=== PATIENT | female | born 1985 | race African-American/Black ===

== ENCOUNTER 2018-05-22 07:49 | Day surgery (SDC) | payer MEDICAID, OTHER ==
[2018-05-22] MEDS ORDERED: ENOXAPARIN SODIUM 40 MG/0.4 ML DISP.SYRIN SQ ONE (08:48)
[2018-05-22] MEDS ORDERED: PROPOFOL 200 MG/20 ML VIAL IV ONE (08:48)
[2018-05-22] MEDS ORDERED: ROCURONIUM BROMIDE 10 MG/ML 5ML VIAL ONE (08:48)
[2018-05-22] MEDS ORDERED: SCOPOLAMINE HYDROBROMIDE 1.5MG/72HR PATCH TD ONE (08:48)
[2018-05-22] MEDS ORDERED: MEPERIDINE (NF) 50 MG/ML VIAL ONE ×2 (08:48→11:42)
[2018-05-22] MEDS ORDERED: LIDOCAINE HCL 2% PF 100MG/5ML VIAL IJ ONE (08:48)
[2018-05-22] MEDS ORDERED: fentaNYL CITRATE/PF 100 MCG/2 ML INJ. ONE ×2 (08:48→11:45)
[2018-05-22] MEDS ORDERED: LIDOCAINE HCL 1% PF 300MG/30ML VIAL ONE (08:48)
[2018-05-22] MEDS ORDERED: MIDAZOLAM HCL 2 MG/2 ML VIAL ONE (08:48)
[2018-05-22] MEDS ORDERED: SODIUM CHLORIDE IRRIG SOLUTION 3,000 ML IRRIG.SOLN IR ONE (08:48)
[2018-05-22] MEDS ORDERED: DEXAMETHASONE SOD PHOS 4 MG/ML VIAL ONE (08:48)
[2018-05-22] MEDS ORDERED: FENTANYL CITRATE/PF 250 MCG/5 ML INJ. ONE (08:48)
[2018-05-22] MEDS ORDERED: SEVOFLURANE 250 ML LIQUID IH ONE (08:48)
[2018-05-22] MEDS ORDERED: ceFAZolin SODIUM 1 GM VIAL ONE (08:48)
[2018-05-22] MEDS ORDERED: KETOROLAC TROMETHAMINE 30 MG/1ML VIAL ONE (08:48)
[2018-05-22] MEDS ORDERED: ONDANSETRON HCL/PF 4 MG/ 2ML VIAL ONE (08:48)
[2018-05-22] MEDS ORDERED: BUPIV. HCL 0.25% (2.5MG/ML)/EPI. (1:200,000) PF 30 ML VIAL IJ ONE (08:48)
[2018-05-22] MEDS ORDERED: LACTATED RINGERS 1,000 ML IV.SOLN IV ONE ×2 (08:48)
[2018-05-22] MEDS ORDERED: HYDROmorphone HCL/PF 2 MG/ML VIAL ONE ×2 (08:48→12:06)
[2018-05-22] MEDS ORDERED: LEVALBUTEROL HCL 1.25 MG/3 ML AMPUL.NEB NEB ONE ×2 (08:48)
[2018-05-22] MEDS ORDERED: SUGAMMADEX SODIUM 200 MG/2 ML VIAL IV ONE (08:48)
[2018-05-22] MEDS ORDERED: FAMOTIDINE 20 MG/2 ML VIAL ONE (08:48)
[2018-05-22] MEDS ORDERED: LEVALBUTEROL HCL 1.25 MG/3 ML VIAL.NEB IH ONE (09:15)
== END 2018-05-22 12:40 | disposition other institution (70) ==
LOC: OPSURG 07:49
PROVIDERS: ATTEND Surgery
DX: E66.01 Morbid (severe) obesity due to excess calories (principal); Z68.41 Body mass index [BMI] 40.0-44.9, adult; K21.9 Gastro-esophageal reflux disease without esophagitis
CPT/HCPCS: 43235; 43775; 93005; A9270; J0690; J1100; J1170; J1650; J1885; J2001; J2175; J2250; J2405; J2704; J3010; J7120; J7614; S0028

== ENCOUNTER 2018-05-22 11:12 | Inpatient (IN) | payer MEDICAID, OTHER ==
--- NOTE | 2018-05-22 13:30 | History and Physical Report ---
History of Present Illnes - History of Present Illness Reason for Visit: S/P Gastric Sleeve History of Present Illness: Patient is a 32-year-old female who has tried multiple diets and exercise programs with no success. She really have difficulty losing weight after pregnancies. Patient and surgeon decided to proceed with gastric sleeve procedure. Procedure went well without complications- patient will be admitted and monitored s/p surgical intervention. 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) Endocrine: obesity Grav: 5 Para: 2 Ab: 3 - Past Surgical History Past Surgical History: Other (vaginal cyst), Other (Right ear keloid) - Past Family History Mother Family History: Other (asthma) Father Family History: Hypertension - Past Social History Smoke: 1 pack per day Alcohol: Rare Drugs: Marijuana Lives: With Family Domestic Violence: Negative - Health Maintenance Health Maintenance: Tetanus, Influenza Vaccine Influenza Vaccine: Current for this Influenza Season Pneumonia Vaccine: No Resuscitation Status: Resusciation Status Resuscitation Status Full Code - Unable to Obtain History Unable to Obtain: No Review of Systems - Review of Systems Constitutional: negative: Fever, Chills Eyes: negative: pain, vision change ENT: negative: Ear Pain, Nose Pain, Throat Pain Respiratory: negative: Cough, Shortness of Breath, SOB with Excertion Cardiovascular: negative: Chest Pain, Edema, Light Headedness Gastrointestinal: Abdominal Pain (s/p gastric sleeve). negative: Nausea, Vomiting Genitourinary: negative: Dysuria (pt has already voided) Musculoskeletal: negative: Back Pain Skin: negative: Rash Neurological: negative: Confusion - Medications/Allergies Allergies/Adverse Reactions: Allergies Allergy/AdvReac Type Severity Reaction Status Date / Time latex Allergy Unknown Verified 05/22/18 13:42 Home Medications: Home Medications Biotin 10,000 mcg PO DAILY 05/22/18 Cyanocobalamin (Vitamin B-12) [Vitamin B-12] 1,000 mcg PO DAILY 05/22/18 Ibuprofen 800 mg PO DAILY 05/22/18 Multivitamin [Tab-A-Aleksander] 1 each PO DAILY 05/22/18 Current Inpatient Medications: Current Inpatient Medications Cefazolin Sodium/Dextrose (Cefazolin 1 G/50 Ml-Dextrose) 1 gm IV Q8H RITO Stop: 05/23/18 02:31 Enoxaparin Sodium (Lovenox) 40 mg SQ QD RITO Stop: 06/06/18 13:59 Famotidine (Pepcid) 20 mg IVP BID [facility] Stop: 05/26/18 20:59 Promethazine HCl 25 mg/ Sodium (Chloride) 51 mls @ 600 mls/hr IV Q6 PRN PRN Reason: Nausea / Vomiting Stop: 05/26/18 13:18 Sodium Chloride (Normal Saline) 1,000 mls @ 150 mls/hr IV Q8H [facility] Ketorolac Tromethamine (Toradol) 30 mg IVP Q6 PRN PRN Reason: For Mild Pain Stop: 05/26/18 13:18 Ondansetron HCl (Zofran 4 Mg/2 Ml) 4 mg IVP Q6H PRN PRN Reason: Nausea / Vomiting Stop: 05/26/18 13:18 Oxycodone HCl (Oxycodone Soln) 5 mg PO Q6 PRN PRN Reason: Pain 5-7 Exam - Exam General: Alert, Oriented to Person, Oriented to Place, Oriented to Time, Cooperative, Mild distress, Obese HEENT: Atraumatic, PERRLA, Mouth Mucous membr. moist/[place], Nose Mucous membr. moist/[place] Neck: Normal Range of Motion Carotids: No bruit Lungs: Clear to auscultation, Normal air movement, Speaks full Sentences Cardiovascular: Regular rate, Normal S1, Normal S2 Peripheral Edema: None Peripheral Pulses: 2+ Abdomen: Soft, Decreased Bowel Sounds Integumentary: Normal, [place], Warm, Other (incision site drsgs dry/intact) Extremities: No edema, Normal pulses, No tenderness/swelling Neurological: Normal gait, Normal speech, Strength Equal Bilat, Sensation intact, Cranial nerves 3-12 NL Psych/Mental Status: Mental status NL, Mood NL, Appropriate Affect Assessment/Plan - Assessment/Plan (1) S/P gastric surgery Status: Acute Current Visit: Yes Assessment: Incisions are without redness/erythema, legs are without tenderness/pain, LCTA Plan: Will monitor incision sites, patient will be placed on Lovenox daily, frequent ambulation and SCDs while in bed, patient will use incentive spirometer to prevent resp. infections, will start PPI, and will give IVFs until patient can tolerate PO (2) Morbid obesity due to excess calories Status: Acute Current Visit: Yes Assessment: s/p gastric sleeve (3) GERD (gastroesophageal reflux disease) Status: Acute Current Visit: Yes Qualifiers: Esophagitis presence: without esophagitis Qualified Code(s): K21.9 - Gastro-esophageal reflux disease without esophagitis Assessment: stable on home meds Plan: Will give Pepcid IV VTE Assessment - RISK FACTOR SCORE VTE RISK FACTOR SCORES: OBESITY, SMOKER, MAJOR SURGERY/ANESTHESIA TIME > 1 HOUR (lovenox daily, frequent ambulation, SCDs in bed)
[2018-05-22] MEDS: OXYCODONE HCL 5 MG/5 ML SOLN UD CUP PO PRN ×2 (14:05→21:17)
[2018-05-22] MEDS: 0.9 % SODIUM CHLORIDE 1,000 ML IV SCH ×2 (15:25→21:19)
[2018-05-22] MEDS: KETOROLAC TROMETHAMINE 30 MG/1ML VIAL IVP PRN (15:38)
[2018-05-22] MEDS: NICOTINE 14mg PATCH.TD24 TD SCH (15:38)
[2018-05-22 16:05] VITALS: BMI 40.6
[2018-05-22] MEDS ORDERED: 0.9 % SODIUM CHLORIDE 50 ML IV ONE (16:45)
[2018-05-22] MEDS: PROMETHAZINE HCL 25 MG in 0.9 % SODIUM CHLORIDE 50 ML IV PRN (16:50)
[2018-05-22] MEDS: CEFAZOLIN SODIUM/DEXTROSE,ISO 1 GM/50 ML PIGGYBACK IV SCH (17:51)
[2018-05-22] MEDS: FAMOTIDINE 20 MG/2 ML VIAL IVP SCH (19:47)
[2018-05-23] MEDS: KETOROLAC TROMETHAMINE 30 MG/1ML VIAL IVP PRN ×2 (01:43→21:29)
[2018-05-23] MEDS: ONDANSETRON HCL/PF 4 MG/ 2ML VIAL IVP PRN (01:43)
[2018-05-23] MEDS: CEFAZOLIN SODIUM/DEXTROSE,ISO 1 GM/50 ML PIGGYBACK IV SCH (02:45)
[2018-05-23] MEDS: 0.9 % SODIUM CHLORIDE 1,000 ML IV SCH ×3 (03:51→17:50)
--- NOTE | 2018-05-23 07:48 | Inpatient Progress Note ---
Subjective - Required Recertification Statement I anticipate X number of days because-include discharge plan: 1 - Review of Systems Subjective: Patient doing ok. Has some nausea and pain this am. Hasn't been walking much. Passing gas. Objective - Exam Vitals and I&O: Vital Signs Temp 98.1 F 05/23/18 06:00 Pulse 56 L 05/23/18 06:00 Resp 20 05/23/18 06:00 BP 108/61 05/23/18 06:00 Pulse Ox 97 05/23/18 06:00 Intake & Output 05/22/18 05/22/18 05/23/18 11:59 23:59 11:59 Intake Total 60 60 Output Total 200 600 Balance -140 -540 Weight 110.9 kg Intake: Oral 60 60 Output: Urine 200 600 Other: Voiding Method Toilet # Voids 1 # Bowel Movements 0 General: Alert, Oriented to Person, Oriented to Place, Oriented to Time, Cooperative, No acute distress Lungs: Clear to auscultation, Normal air movement, Speaks full Sentences Cardiovascular: Regular rate Abdomen: Normal bowel sounds, Soft. No: No tenderness (Mild over incisions. Bandages C/D/I) Assessment/Plan - Assessment/Plan (1) S/P gastric surgery Status: Acute Current Visit: Yes Plan: Will encourage patient to get up and walk. Use iS. Maalox x 1
[2018-05-23] MEDS ORDERED: MAGNESIUM, ALUMINUM HYDROXIDE 30 ML UDC PO ONE (07:55)
[2018-05-23] MEDS: NICOTINE 14mg PATCH.TD24 TD SCH (08:28)
[2018-05-23] MEDS: FAMOTIDINE 20 MG/2 ML VIAL IVP SCH ×2 (09:02→20:50)
[2018-05-23 09:21] LABS: BASOPHILS % 0.4 (0.0-1.5); EOSINOPHILS % 0.9 % (0.0-6.8); MEAN CORPUSCULAR HEMOGLOBIN 32.3 pg (28.0-34.0); MONOCYTES % 5.1 % (0.0-11.0); NEUTROPHILS # 6.4 # k/uL (1.4-7.7)
[2018-05-23] MEDS ORDERED: ENOXAPARIN SODIUM 40 MG/0.4 ML DISP.SYRIN SQ SCH (14:00)
[2018-05-23] MEDS: PROMETHAZINE HCL 25 MG in 0.9 % SODIUM CHLORIDE 50 ML IV PRN (21:30)
[2018-05-24] MEDS: 0.9 % SODIUM CHLORIDE 1,000 ML IV SCH ×2 (00:38→09:29)
[2018-05-24] MEDS: PROMETHAZINE HCL 25 MG in 0.9 % SODIUM CHLORIDE 50 ML IV PRN (05:48)
[2018-05-24] MEDS: KETOROLAC TROMETHAMINE 30 MG/1ML VIAL IVP PRN (05:49)
--- NOTE | 2018-05-24 07:42 | Discharge Summary ---
Discharge Summary - Discharge Sumary History of Present Illness: Patient is a 32-year-old female who has tried multiple diets and exercise programs with no success. She really have difficulty losing weight after pregnancies. Patient and surgeon decided to proceed with gastric sleeve procedure. Procedure went well without complications- patient will be admitted and monitored s/p surgical intervention. Condition at Discharge: Stable Home Medications: Ambulatory Orders Medication Instructions Recorded Biotin 10,000 mcg PO DAILY 05/22/18 Cyanocobalamin (Vitamin B-12) 1,000 mcg PO DAILY 05/22/18 [Vitamin B-12] Ibuprofen 800 mg PO DAILY 05/22/18 Multivitamin [Tab-A-Aleksander] 1 each PO DAILY 05/22/18 Consultations this Visit: None Procedures this Visit: Other (s/p sleeve gastrectomy) Allergies/Adverse Reactions: Allergies Allergy/AdvReac Type Severity Reaction Status Date / Time latex Allergy Unknown Verified 05/22/18 13:42 Hospital Course: Patient did well with sleeve gastrectomy. IS, ambulation, SCD were utilized. Patient was very hard to get to walk and do IS. Diet advanced. Pain controlled. Discharged home in good condition.
[2018-05-24] MEDS: NICOTINE 14mg PATCH.TD24 TD SCH ×2 (09:33→09:35)
[2018-05-24] MEDS: FAMOTIDINE 20 MG/2 ML VIAL IVP SCH (09:34)
[2018-05-24] MEDS ORDERED: FAMOTIDINE 20 MG/2 ML VIAL ONE (09:43)
[2018-05-24] MEDS: ONDANSETRON HCL/PF 4 MG/ 2ML VIAL IVP PRN (10:29)
[2018-05-24] MEDS: OXYCODONE HCL 5 MG/5 ML SOLN UD CUP PO PRN (10:29)
[2018-05-24 11:00] VITALS: BP 118/74
== END 2018-05-24 11:20 | disposition home or self-care (01) | DRG 641 ==
LOC: UNDOADMIN 11:12 → SOUTH 11:12 → UNDODISIN 05-24 11:20
PROVIDERS: ADMIT Nurse Practitioner Family; ATTEND Nurse Practitioner Family
DX: E66.01 Morbid (severe) obesity due to excess calories (principal); R11.2 Nausea with vomiting, unspecified; K21.9 Gastro-esophageal reflux disease without esophagitis; F17.210 Nicotine dependence, cigarettes, uncomplicated
CPT/HCPCS: 36415; 85025; 99221; 99231; 99238; J1650; J1885; J2405; J2550; J7030